=== PATIENT | male | born 1990 | race African-American/Black ===

== ENCOUNTER 2023-08-07 19:26 | Emergency (ER) | payer MEDICAID ==
[~2023-08-07] VITALS: Ht 175.3 cm; Wt 91.0 kg
[~2023-08-07 19:26] MED LIST: CEPH500C2 MT; SULF1TAB48 MT
[2023-08-07 19:29] VITALS: BP 156/90; PULSE 52; RESP 16; TEMP 97.4; O2SAT 99
== END 2023-08-08 01:23 | disposition left against medical advice (07) ==
LOC: ER 19:26
DX: Z53.21 Procedure and treatment not carried out due to patient leaving prior to being seen by health care provider (principal)
CPT/HCPCS: 93005; 99281